=== PATIENT | male | born 1975 | race Caucasian/White ===

== ENCOUNTER 2018-03-18 18:58 | Emergency (ER) | payer SELFPAY ==
[~2018-03-18] VITALS: Ht 177.8 cm; Wt 88.9 kg
[2018-03-19 02:20] VITALS: BP 131/88
== END 2018-03-19 02:20 | disposition home or self-care (01) ==
LOC: ER 18:58
DX: S06.0X0A Concussion without loss of consciousness, initial encounter (principal); F10.129 Alcohol abuse with intoxication, unspecified; Y90.7 Blood alcohol level of 200-239 mg/100 ml; M54.2 Cervicalgia; S50.312A Abrasion of left elbow, initial encounter; V49.49XA Driver injured in collision with other motor vehicles in traffic accident, initial encounter; Y93.89 Activity, other specified; Y92.410 Unspecified street and highway as the place of occurrence of the external cause
CPT/HCPCS: 36415; 70450; 72125; 99285; G0482